=== PATIENT | female | born 1975 | race African-American/Black ===

== ENCOUNTER 2018-02-06 02:13 | Emergency (ER) | payer SELFPAY ==
[~2018-02-06] VITALS: Ht 172.7 cm; Wt 80.0 kg
[2018-02-06 02:18] VITALS: BP 144/119
== END 2018-02-06 06:00 | disposition left against medical advice (07) ==
LOC: ER 02:13
DX: H53.8 Other visual disturbances (principal); Z53.21 Procedure and treatment not carried out due to patient leaving prior to being seen by health care provider